=== PATIENT | female | born 1940 | race Caucasian/White ===

== ENCOUNTER 2022-02-04 15:08 | Emergency (ER) | payer MEDICARE ==
[~2022-02-04] VITALS: Ht 165.1 cm; Wt 50.8 kg
--- NOTE | 2022-02-04 16:10 | NUR ---
URINE SAMPLE COLLECTED AND SENT TO LAB
[2022-02-04 16:32] LABS: BILIRUBIN,URINE NEGATIVE (NEGATIVE); COLOR,URINE YELLOW (YELLOW); LEUKOCYTE ESTERASE ,URINE NEGATIVE (NEGATIVE); NITRITE, URINE NEGATIVE (NEGATIVE); PROTEIN,URINE 1+ mg/dl (NEGATIVE); UGLUCOSE NEGATIVE (NEGATIVE); UROBILINOGEN,URINE 0.2 EU/dL (0.2)
--- NOTE | 2022-02-04 17:00 | NUR ---
COVID SWAB COLLECTED AND SENT TO LAB
--- NOTE | 2022-02-04 17:04 | NUR ---
PT TAKEN TO RADIOLOGY FOR CT.
--- NOTE | 2022-02-04 17:15 | NUR ---
PT RETURNED FROM RADIOLOGY
--- NOTE | 2022-02-04 17:35 | NUR ---
TECH AT BEDSIDE FOR EKG
--- NOTE | 2022-02-04 17:45 | NUR ---
IV LINE ESTABLISHED ON LFA #22, BLOOD DRAWN AND COLLECTED BY PHLEB AT BEDSIDE
[2022-02-04] MEDS ORDERED: GABA300C PO (17:54)
[2022-02-04] MEDS ORDERED: CHOL100043 PO (17:54)
[2022-02-04] MEDS ORDERED: PRAV40TA3 PO (17:54)
[2022-02-04] MEDS ORDERED: ASPI-1420 PO (17:54)
[2022-02-04] MEDS ORDERED: LEVO75TA7 PO (17:54)
[2022-02-04] MEDS ORDERED: NEBI10TA2 PO (17:54)
[2022-02-04 18:18] LABS: BASOPHILS % (AUTO) 0.3 % (0.0-2.0); EOSINOPHILS % (AUTO) 3.2 % (0.0-6.0); HEMATOCRIT 37 % (33-45); HEMOGLOBIN 12.1 g/dL (11.5-14.8); LYMPHOCYTES # (AUTO) 1.3 K/uL (0.8-4.8); LYMPHOCYTES % (AUTO) 31.4 % (20.0-44.0); MEAN CORPUSCULAR HGB CONC 33 g/dl (31.0-36.0); MEAN CORPUSCULAR VOLUME 97 fL (82-100); MONOCYTES # (AUTO) 0.4 K/uL (0.1-1.30); MONOCYTES % (AUTO) 10.2 % (2.0-12.0); NEUTROPHILS # (AUTO) 2.3 K/uL (1.8-8.9); NEUTROPHILS % (AUTO) 54.9 % (43.0-81.0); PLATELET COUNT (AUTO) 208 K/uL (150-450); WHITE BLOOD COUNT (AUTO) 4.2 K/uL (4.3-11.0)
[2022-02-04 18:35] LABS: BACTERIA,URINE None seen /HPF (None Seen); RBC,URINE 0-2 /HPF (0-2); SQUAMOUS EPITHELIAL CELL,UR 0-2 /HPF (None Seen); WBC,URINE 0-2 /HPF (0-3)
[2022-02-04 18:51] LABS: CALCIUM, SERUM 9.1 mg/dL (8.5-10.1); CARBON DIOXIDE 26 mmol/L (21-32); CHLORIDE 100 mmol/L (98-107); CREATININE 0.9 mg/dL (0.6-1.3); GLUCOSE 83 mg/dL (74-106); POTASSIUM 4.5 mmol/L (3.5-5.1); SODIUM SERUM 136 mmol/L (136-145); UREA NITROGEN, BLOOD 25 mg/dL (7-18)
[2022-02-04 18:56] LABS: ALANINE AMINOTRANSFERASE 33 U/L (12-78); ALBUMIN 3.1 g/dL (3.4-5.0); ALKALINE PHOSPHATASE 126 U/L (46-116); ASPARTATE AMINOTRANSFERASE 36 U/L (15-37); BILIRUBIN,DIRECT 0.1 mg/dL (0.0-0.2); BILIRUBIN,TOTAL 0.4 mg/dL (0.2-1.0); TOTAL PROTEIN, SERUM 6.9 g/dL (6.4-8.2)
--- NOTE | 2022-02-04 18:58 | NUR ---
TROPONIN 60, DR. WARRNE MADE AWARE
[2022-02-04] MEDS ORDERED: Z GUARD REMEDY 4 OZ OINT TP PRN (19:00)
[2022-02-04] MEDS: ENOXAPARIN SODIUM 40 MG/0.4 ML DISP.SYRIN SQ SCH (19:00)
[2022-02-04] MEDS ORDERED: ACETAMINOPHEN 325 MG TABLET PO PRN (19:00)
[2022-02-04] MEDS ORDERED: MAG HYDROX/AL HYDROX/SIMETH 30 ML UDC PO PRN (19:00)
[2022-02-04] MEDS: ASPIRIN EC 81 MG TABLET.DR PO SCH (19:00)
[2022-02-04] MEDS ORDERED: MAGNESIUM HYDROXIDE 30 ML UDC PO PRN (19:00)
[2022-02-04] MEDS ORDERED: ONDANSETRON HCL/PF 4 MG/2 ML VIAL IVP PRN (19:00)
--- NOTE | 2022-02-04 19:02 | NUR ---
PT AND PT'S SON SPOKE W/ DR. WARREN; PER MD, PT WILL BE DISCHARGED TODAY.
[2022-02-04] MEDS: ASPIRIN 325 MG TABLET PO ONE (19:03)
--- NOTE | 2022-02-04 19:03 | NUR ---
IV removed. Catheter intact and site benign. Pressure and 4x4 applied to site. No bleeding noted.
[2022-02-04 19:13] LABS: THYROID STIMULATING HORMONE 3.424 uIU/mL (0.358-3.74)
--- NOTE | 2022-02-04 19:25 | NUR ---
Patient discharged to home in stable condition. Written and verbal after care instructions given. Patient verbalizes understanding of instruction. Addendum: 02/04/22 at 1925 by FREIDA Pt accompanied and picked up by son
[2022-02-04 19:26] VITALS: BP 142/70
[2022-02-04] MEDS ORDERED: BLOOD SUGAR DIAGNOSTIC 1 EACH STRIP IN SCH (22:00)
[2022-02-05] MEDS ORDERED: BLOOD SUGAR DIAGNOSTIC 1 EACH STRIP IN SCH
[2022-02-05] MEDS ORDERED: LEVOTHYROXINE SODIUM 75 MCG TABLET PO SCH (07:30)
[2022-02-05] MEDS ORDERED: ATORVASTATIN 10 MG TABLET PO SCH (09:00)
[2022-02-05] MEDS ORDERED: METOPROLOL TARTRATE 50 MG TABLET PO SCH (09:00)
[2022-02-05] MEDS ORDERED: ASPIRIN EC 325 MG TABLET.DR PO SCH (09:00)
== END 2022-02-04 19:26 | disposition left against medical advice (07) ==
LOC: ER 15:16
DX: G45.9 Transient cerebral ischemic attack, unspecified (principal); Z20.822 Contact with and (suspected) exposure to COVID-19; I44.0 Atrioventricular block, first degree; Z79.82 Long term (current) use of aspirin; E07.9 Disorder of thyroid, unspecified; Z79.890 Hormone replacement therapy; I12.9 Hypertensive chronic kidney disease with stage 1 through stage 4 chronic kidney disease, or unspecified chronic kidney disease; N18.9 Chronic kidney disease, unspecified; Z53.29 Procedure and treatment not carried out because of patient's decision for other reasons
CPT/HCPCS: 36415; 70450-TC; 71045-TC; 80048-TC; 80076-TC; 81001; 84443-TC; 84484-TC; 85025-TC; C9803